=== PATIENT | male | born 1950 | race Caucasian/White ===

== ENCOUNTER → 2016-09-29 | Outpatient (CLI) | payer OTHER, BC ==
[2016-09-29 17:38] LABS: HEMOGLOBIN A1C 6.83 % (4.2-6.0); MEAN BLOOD GLUCOSE (CALC) 141.439 mg/dL
== END ==
LOC: MOB LAB 16:15
DX: E11.9 Type 2 diabetes mellitus without complications (principal); F17.210 Nicotine dependence, cigarettes, uncomplicated
CPT/HCPCS: 36415; 83036

== ENCOUNTER → 2016-12-28 | Outpatient (CLI) | payer OTHER, BC ==
[2016-12-28 16:43] LABS: HEMOGLOBIN A1C 6.73 % (4.2-6.0)
== END ==
LOC: MOB LAB 14:04
DX: E11.9 Type 2 diabetes mellitus without complications (principal); F17.200 Nicotine dependence, unspecified, uncomplicated
CPT/HCPCS: 36415; 83036

== ENCOUNTER → 2017-04-01 | Outpatient (CLI) | payer OTHER, BC | LOC: MMPC 11:11 | DX: E11.9 Type 2 diabetes mellitus without complications (principal); I10 Essential (primary) hypertension; J41.0 Simple chronic bronchitis; I25.10 Atherosclerotic heart disease of native coronary artery without angina pectoris; E78.1 Pure hyperglyceridemia; E66.3 Overweight; E55.9 Vitamin D deficiency, unspecified | CPT/HCPCS: 99213; G0463 ==